=== PATIENT | female | born 1955 | race Caucasian/White ===

== ENCOUNTER → 2016-08-15 | Outpatient (CLI) | payer OTHER ==
[~2016-08-15] MED LIST: ANTRONEX PO; ASCO500T3 PO; CALC500T68 PO; CHOL1TAB42 PO; COQ10 PO; DIGE1CAP10 PO; ESTCR EXT; GLUCTAB7 PO; HYDR-5688 PO; KELP PO; MULT-506 PO; PREGNENOLONE PO; PYRI1TAB40 PO; ZINC25TA PO; [UNRECOGNIZED DRUG - CODE] PO
--- NOTE | 2016-08-15 15:54 | DIAGNOSTIC IMAGING REPORT ---
LEFT FOOT 3 VIEWS HISTORY: ANTERIOR LEFT FOOT PAIN S/P FALL COMPARISON: None. FINDINGS: There is no fracture or dislocation. Soft tissues are unremarkable. No radiopaque foreign bodies. IMPRESSION: No fractures. Electronically signed by: Chris Constantino M.D. 08/15/2016 3:53 PM Dictated Date/Time: 08/15/2016 3:49 PM
== END | disposition home or self-care (01) ==
LOC: C.RDSM 08:52
PROVIDERS: ATTEND Family Medicine
DX: M79.672 Pain in left foot (principal)

== ENCOUNTER → 2016-09-18 | Outpatient (CLI) | payer OTHER | END | disposition home or self-care (01) | LOC: C.PAPS 14:07 | PROVIDERS: ATTEND Obstetrics & Gynecology | DX: Z12.4 Encounter for screening for malignant neoplasm of cervix (principal); N95.2 Postmenopausal atrophic vaginitis ==

== ENCOUNTER → 2016-09-26 | Day surgery (SDC) | payer OTHER ==
[2016-09-13 08:54] VITALS: Ht 167.6 cm; Wt 59.1 kg
[~2016-09-26] VITALS: Ht 167.6 cm; Wt 59.1 kg
[~2016-09-26] MED LIST changes: +ATROPINE SULFATE 0.1 MG/ML 5ML SYR IV PRN; +BUPIVACAINE/EPINEPHRINE 0.25% 1:200,000 30 ML VIAL ONE; +CEFAZOLIN 1000MG/55 ML D5W IV SCH; +DEXAMETHASONE SOD INJ 4 MG/ML VIAL ONE; +EpHEDrine SULFATE INJ 50 MG/ML AMP IV PRN; +EpHEDrine SULFATE INJ 50 MG/ML AMP ONE; +EpINEphrine INJ 1MG/ML AMP 1 MG/ML AMP ONE; +FENTANYL CITRATE INJ 50 MCG/1 ML 2 ML VIAL IV PRN; +FENTANYL CITRATE INJ 50 MCG/1 ML 2 ML VIAL ONE; +HYDROCODONE/ACETAMOPHEN 5/325MG TAB PO PRN; +LACTATED RINGER'S 1000ML 1,000 ML IV SCH; +LIDOCAINE HCL 2% 2 ML VIAL (20MG/ML) ONE; +LIDOCAINE/EPINEPHRINE 1% INJ 50 ML VIAL ONE; +MIDAZOLAM HCL 1 MG/ML 2ML VIAL ONE; +MoRPHine SULFATE 2 MG/ML CARP IV PRN; +MoRPHine SULFATE 4 MG/ML 1 ML CARP\\VIAL IV PRN; +ONDANSETRON INJ 2 MG/ML 2 ML VIAL IV PRN; +ONDANSETRON INJ 2 MG/ML 2 ML VIAL ONE; +PROMETHAZINE HCL INJ 12.5 MG in SODIUM CHLORIDE 0.9% 50ML 50 ML IV PRN; +PROPOFOL IV EMULSION 10 MG/ML 20 ML VIAL IV ONE; +SCOPOLAMINE 1.5 MG TDSY TD ONE; +SODIUM CHLORIDE 0.9% 1000ML 1,000 ML IV SCH; +SODIUM CHLORIDE 0.9% INJ 10 ML VIAL ONE
--- NOTE | 2016-09-26 06:53 | History & Physical Bridge Note ---
H&P Re-Evaluation Bridge Note: I have examined the patient, reviewed the History & Physical and in the interval since the performance of the History & Physical I have noted the following changes of clinical significance: No changes noted
--- NOTE | 2016-09-26 11:28 | [facility] Post Operative Brief Note ---
Immediate Operative Summary Operative Date Sep 26, 2016. Pre-Operative Diagnosis impingement Post-Operative Diagnosis partial cuff tear, Procedure(s) Performed Right Shoulder Arthroscopy, Subacromial Decompression, Acromioplasty, Rotator cuff repair, Biceps Tenodesis, Coracoplasty Surgeon Dr. Wesley Technical Analyst Surgeon(s) Dr. Samy Madden, jocelyn goodwin,ms3 Estimated Blood Loss 25 mL Findings partial cuff tear Specimens None Anesthesia LMA with block Complication(s) None Disposition Recovery Room / PACU
--- NOTE | 2016-09-26 11:44 | Discharge Instructions-SurgCtr ---
Discharge Instructions Date of Service Sep 26, 2016. Visit Reason for Visit: Right Shoulder Impingement, Biceps Tendinitis Discharge Discharge Diagnosis / Problem: Status post right shoulder arthroscopy Discharge Goals Goal(s): Decrease discomfort, Improve function, Increase independence Activity Recommendations Activity Limitations: per Instructions/Follow-up section Anesthesia . Post Anesthesia Instructions: If you have had General Anesthesia or IV Sedation: * Do not drive today. * Resume driving when surgeon permits. * Do not make important decisions or sign legal documents today. * Call surgeon for: 1. Temperature elevations greater than 101 degrees F. 2. Uncontrollable pain. 3. Excessive bleeding. 4. Persistent nausea and vomiting. 5. Medication intolerance (nausea, vomiting or rash). * For nausea and vomiting use only clear liquids such as: tea, soda, bouillon until nausea subsides, then gradually increase diet as tolerated. * If you have any concerns or questions, call your surgeon's office. If physician is unavailable and it is an emergency, call 911 or go to the nearest emergency room. . Instructions / Follow-Up Instructions / Follow-Up The following are instructions to follow after "Shoulder Surgery" including, Acromioplasty, Rotator Cuff Repair and Instability Surgery ACTIVITY RECOMMENDATIONS: * Minimize activity after surgery. * No excessive walking, jogging, sports or laboring. * Return to activity is individualized depending on the patient and type of surgery. * Driving is not permitted until at least your first post operative visit. Please ask your doctor when it is safe to resume driving. * Expect increased discomfort with increased activity. Continue to ice the shoulder as needed. SCHOOL/WORK RECOMMENDATIONS: * You may return to sedentary work or school when you are feeling more comfortable. This is usually 3-7 days after surgery. MEDICATIONS: * You will have a prescription for pain medication and an anti-inflammatory medication after surgery. * Use the pain medication for severe pain and the anti-inflammatory for less severe pain. Once the pain medication has run out, try to use the anti-inflammatory medication. If this is not effective, contact the office for assistance. * The pain medication may cause nausea, constipation and drowsiness. You should see how they affect you before driving or similar activity. * The anti-inflammatory medication may cause stomach upset and bleeding. If this occurs let your doctor know immediately . * Take a stool softener like Colace or a laxative like Senokot to prevent constipation. DIET: * Resume previous diet. SPECIAL CARE: ICE: You have the option of an ice cooler, gel packs or ice bags. * If you have an ice cooler, refer to the instructions for that device. The ice cooler may be used continuously. * If you do not have an ice cooler, you will need to use ice bags or gel packs. Do not apply ice directly to the skin. Use a thin dressing or yoanna shirt between the skin and ice bag. Apply ice for 20-30 minutes and repeat every 2-4 hours. This is especially important for the first 7-10 days after surgery. Once the pain improves, use ice as needed. ELEVATION: * You may be more comfortable sleeping in an upright position. Use the sling to elevate your arm. DRESSING: * Your dressing will be changed at your first therapy appointment approximately 4-5 days after surgery. Band-aids, tape strips or gauze may be applied. You may then change your dressing daily. * Reapply dressing followed by the EBIce cooling pad (if chosen) and then the sling. * Always wash your hands prior to touching the incision area. * Once the stitches are removed, you may leave the wound open to air or cover with gauze. * Expect some bloody drainage for the first few days after surgery. * Leave the tape strips, if present, in place for 5-7 days. * Band-aids and gauze may be changed daily. * There may be a gauze pad in your armpit area. This can be changed daily or replaced by a dry washcloth. SLING/BRACE: * You will need to use a sling or brace after surgery. The length of time the sling is used is dependent upon the type of surgery performed. * Arthroscopic Acromioplasty requires use of the sling for 2-4 weeks for comfort. * Labral procedures and Rotator Cuff Repairs require use of the sling for a longer period of time. Please check with your doctor prior to discontinuing the sling. BATHING: * You may shower or sponge-bathe immediately after surgery. The post operative shoulder dressing is mostly water-tight. You may shower right over this dressing, but be reasonably careful not to get the gauze or incision wet. * Once the dressing has been changed on the fourth or fifth day after surgery, you may shower and get the incision wet. * Wash with regular soap and water. * Do not bathe (submerge the incision), soak, swim or use a hot tub until the incision is completely healed over with normal skin and the doctor has given the OK to proceed. * There is no need to apply any ointments, powders or salves to your incision. * Do not apply alcohol or hydrogen peroxide directly to the incision. * Diluted peroxide (50:50 mixture with sterile saline) may be used to clean dried blood from around the incision area. THERAPY: * You will begin therapy four or five days after surgery. * Organized therapy with the therapist is important for the first 2-4 months after surgery depending on the type of procedure. During that time you will attend therapy 1-3 times per week. * You will also need to do daily exercises for range of motion and strength as instructed. * Patients who have a Capsular Shift Procedure will need to abide by temporary range of motion limitations. * Patients having Rotator Cuff Surgery are not allowed to actively lift their arms until 4-6 weeks after surgery. * Please check with your doctor regarding appropriate motion restrictions. FOLLOW UP VISIT: * If not already scheduled, please call the office at to schedule a follow-up appointment for 10 days after surgery and monthly thereafter. * Follow up with Dr. Wesley on 10/07/16 at 12pm * Follow up with Physical Therapy on 10/01/16 at 10.30am Diet Recommendations Home Diet: no limitations, resume previous diet Procedures Procedures Performed: Right Shoulder Arthroscopy, Subacromial Decompression, Acromioplasty, Rotator cuff repair, Biceps Tenodesis, Coracoplasty Pending Studies Studies pending at discharge: no Medical Emergencies . Who to Call and When: Medical Emergencies: If at any time you feel your situation is an emergency, please call 911 immediately. . Non-Emergent Contact Non-Emergency issues call your: Surgeon . . "Provider Documentation" section prepared by Samy Cook.
--- NOTE | 2016-09-26 11:45 | Medical Student: [facility] ---
Immediate Operative Summary Operative Date Sep 26, 2016. Pre-Operative Diagnosis Right Rotator Cuff Impingement Post-Operative Diagnosis Right rotator cuff impingement; partial tear of rotator cuff Procedure(s) Performed Right shoulder arthroscopy, PASTA repair, release of coracoacromial ligament, coracoplasty, acromioplasty, debridement of subacoracoid bursa, subpectoral biceps tenodesis Surgeon Dr. Wesley Leather Goods Ii Assembler Surgeon(s) Dr. Koki Cook Estimated Blood Loss 25 mL Findings Partial rotator cuff tear, bursitis, tenosynovitis Specimens None Drains None Anesthesia LMA/Block Complication(s) None Disposition Recovery Room / PACU
--- NOTE | 2016-09-26 11:46 | [facility] Post Operative Brief Note ---
Immediate Operative Summary Operative Date Sep 26, 2016. Pre-Operative Diagnosis impingement Post-Operative Diagnosis partial cuff tear, Procedure(s) Performed Right Shoulder Arthroscopy, Subacromial Decompression, Acromioplasty, Rotator cuff repair, Biceps Tenodesis, Coracoplasty Surgeon Dr. Wesley Warp Hand Surgeon(s) Dr. Samy Madden, jocelyn goodwin,ms3 Estimated Blood Loss 25 mL Specimens None Complication(s) None Disposition PCU
--- NOTE | 2016-09-26 12:39 | Anesthesia Progress Nt - [facility] ---
Anesthesia Post Op Note Date & Time Sep 26, 2016 at 12:38 Vital Signs Pain Intensity: 0 Vital Signs Past 12 Hours Date Time Temp Pulse Resp B/P Pulse Ox O2 Delivery O2 Flow Rate FiO2 09/26/16 12:30 91 7 94 09/26/16 12:30 37.2 92 7 09/26/16 12:25 97 3 121/75 95 09/26/16 12:25 96 3 09/26/16 12:21 126/53 09/26/16 12:20 101 18 95 09/26/16 12:20 100 18 09/26/16 12:15 94 15 09/26/16 12:15 95 15 121/69 95 09/26/16 12:10 92 9 130/70 94 09/26/16 12:10 93 9 09/26/16 12:05 94 17 121/69 95 09/26/16 12:05 93 17 09/26/16 12:01 120/78 09/26/16 12:00 94 14 98 09/26/16 12:00 94 14 09/26/16 11:55 94 16 09/26/16 11:55 94 16 124/73 98 09/26/16 11:51 114/62 09/26/16 11:50 94 15 09/26/16 11:50 93 15 98 09/26/16 11:45 85 10 09/26/16 11:45 86 10 117/64 98 09/26/16 11:42 36.4 87 16 132/70 98 Mask 6 09/26/16 11:40 90 10 122/67 98 09/26/16 11:40 89 10 09/26/16 11:39 137/70 09/26/16 08:00 0 09/26/16 08:00 0 09/26/16 07:59 0 09/26/16 07:59 0 09/26/16 07:55 107/56 09/26/16 07:54 82 11 99 09/26/16 07:54 83 11 09/26/16 07:53 70 13 09/26/16 07:53 70 13 98 09/26/16 07:50 114/67 09/26/16 07:48 70 14 100 09/26/16 07:48 70 14 09/26/16 07:45 137/80 09/26/16 07:43 82 10 100 09/26/16 07:43 82 10 09/26/16 07:40 124/74 09/26/16 07:38 77 9 98 09/26/16 07:38 76 9 09/26/16 07:35 122/74 09/26/16 07:33 78 99 09/26/16 07:33 80 09/26/16 07:32 131/80 09/26/16 07:03 77 09/26/16 07:03 77 100 09/26/16 06:58 78 09/26/16 06:58 82 100 09/26/16 06:34 36.6 87 16 120/71 99 Room Air Notes Mental Status: alert / awake / arousable, participated in evaluation Pt Amnestic to Procedure: Yes Nausea / Vomiting: adequately controlled Pain: adequately controlled Airway Patency, RR, SpO2: stable & adequate BP & HR: stable & adequate Hydration State: stable & adequate Anesthetic Complications: no major complications apparent Block working well in pacu
[2016-09-26 12:40] VITALS: TEMP 36.9
[2016-09-26 13:18] VITALS: BP 120/65; PULSE 88; O2SAT 99
--- NOTE | 2016-09-26 13:59 | OPERATIVE REPORT ---
DATE OF OPERATION: 09/26/2016 PREOPERATIVE DIAGNOSIS: Right shoulder impingement syndrome. POSTOPERATIVE DIAGNOSIS: Partial thickness supraspinatus tear. PROCEDURES: Right shoulder arthroscopy, debridement, percutaneous arthroscopic repair of partial thickness supraspinatus tear, coracoplasty, acromioplasty, biceps tenodesis. SURGEON: Dr. Wesley. PRINCIPAL ASSOCIATE: Samy East MD, fellow. No resident or PA available. ANESTHESIA: Laryngeal mask with interscalene block. SECOND PRINCIPAL ASSOCIATE: Sara Palomino [facility] 3rd year medical student. BRIEF HISTORY: The patient is a 60-year-old female with a long history of right shoulder pain. Her MRI looks fairly normal. Her acromial morphology is relatively flat. She does have evidence of bursitis. She has responded temporarily but favorably to biceps injections and subacromial injections. After failing nonoperative management, she is taken to surgery. PROCEDURE IN DETAIL: Informed consent was obtained. The patient was identified as Sis Roman. She identified the operative site as the right shoulder. I marked it with my initials. A preop surgical timeout was performed. A preop dose of IV antibiotics was given. She was taken to the operating room, positioned supine on the operating room table. A laryngeal mask anesthetic was administered along with an interscalene block. She was positioned beach chair with the neck held in neutral alignment. The [place] body positioner and Trimano arm holders were utilized. The examination under anesthesia revealed full unrestricted range of motion, grade 1 posterior laxity, grade 1 sulcus and grade 2 anterior translation which was equal bilaterally. The neck was held in neutral alignment, the mastoid processes were padded. The torso was secured to the table. The knees were flexed and heels were padded. Foot pumps used intraoperatively for DVT prophylaxis, early mobility postoperatively. An injection with 1% lidocaine containing epinephrine was done into the portal sites and subacromial space preoperatively. The right upper extremity was prepped and draped in the usual sterile fashion. Posterior soft spot viewing portal was established, followed by a mid glenoid anterior working portal using the outside-in technique. Diagnostic arthroscopy was performed. The rotator interval, anterior and posterior capsule, subscapularis were normal. The subscap had a normal attachment. The biceps tendon looked normal and was also pulled into the joint. Because of the patient's pain pattern and response to prior injections, I elected to proceed with a biceps tenotomy versus tenodesis and resected the biceps. The crescent cable construct of the rotator cuff was noted. Debridement of the leading edge of the supraspinatus revealed after removal of the synovium, that there was partial thickness damage which was of a depth of about 5-6 mm for about the anterior 5-7 mm, more posterior it was 3-4 mm. This was about 1 cm in length. The articular surfaces were normal. There was minor fraying of the labrum which was debrided. No loose bodies were noted. The scope was placed anteriorly. The posterior capsular structures and labrum were visualized. The rotator interval was debrided and because of her anterior pain, a 2-3 mm coracoplasty was performed. The scope was placed in the subacromial space. Prior to that, a tagging suture was passed through the partial thickness tear of the rotator cuff. On the bursal surface, there was noted to be a moderate amount of bursitis which was thoroughly debrided and the rotator cuff on the bursal surface, although slightly frayed, remained intact without evidence of any bursal-sided tearing. I was able to place the scope anteriorly and visualize and measure the rotator cuff tear, now that the biceps tendon and rotator interval tissue were debrided. This indicated that the rotator cuff tear at the anterior aspect was about 50% of the thickness of the tendon. I therefore thought that a repair would be helpful. The scope was placed back into the joint. The position of the anchor was established based on the percutaneous spinal needle. This was followed by the application of a percutaneous awl, followed by a 4.5 mm PEEK Corkscrew anchor. This was followed by shuttling one of each color suture posteromedially and anteromedially for horizontal mattress stitch type repair, reapproximating the partial thickness tear completely back down to the bone. The scope was then placed in the subacromial space, the sutures were retrieved, managed and then tied using a modified Apolinar knot backed up with reverse half hitches on alternating posts. The scope was placed back into the joint and the repair was secure and the footprint was covered. The undersurface of the acromion was denuded. There was a slight bit of anterior and lateral prominence and so 2-3 mm of anterolateral bone was debrided. There was evidence of chronic impingement on the coracoacromial ligament and acromion. The undersurface was debrided of soft tissue, the coracoacromial ligament was released. The scope and instruments were removed from the shoulder. Deltopectoral interval distal extent was identified and a 5 cm incision was made over the upper biceps, just at the inferior margin of the pectoralis. Blunt dissection through the subcutaneous tissues, the inferior border of the pectoralis tendon was identified and Hohmann retractors were inserted. The biceps tendon was identified and delivered into the joint. The bicipital groove lower portion was excoriated with a rongeur and curette and then tenodesed with a single 2.9 mm all-suture JuggerKnot type anchor with the musculotendinous junction at the inferior border of the pectoralis tendon. Meticulous hemostasis was achieved. The portals were closed with 4-0 nylon. The anterior incision was closed with 4-0 Vicryl and a running 3-0 Prolene subcuticular stitch. This was followed by the application of a soft sterile dressing and ABD in the armpit. The armpit was excluded from the surgical field with Ioban. The patient awakened from anesthesia without difficulty and taken to recovery in stable condition. There were no specimens or complications. Counts were correct at the end of case. Blood loss was 25 mL. At the conclusion of the operation, I spoke to patient's and informed him of my findings. Postoperative instructions were given. She will have passive range of motion of the shoulder consistent with rotator cuff repair rehab protocol and also will have passive movement of the elbow for the next 4-6 weeks. The biceps tendon appeared fairly normal. There was some tenosynovitis. I attest to the content of the Intraoperative Record and any orders documented therein. Any exceptio ns are noted below.
== END | disposition home or self-care (01) ==
LOC: X.SURG 06:17
PROVIDERS: ATTEND Physical Medicine & Rehabilitation Sports Medicine
DX: M75.41 Impingement syndrome of right shoulder (principal); M75.51 Bursitis of right shoulder; Z80.1 Family history of malignant neoplasm of trachea, bronchus and lung

== ENCOUNTER → 2016-10-07 | Outpatient (CLI) | payer OTHER ==
[~2016-10-07] MED LIST changes: -ATROPINE SULFATE 0.1 MG/ML 5ML SYR IV PRN; -BUPIVACAINE/EPINEPHRINE 0.25% 1:200,000 30 ML VIAL ONE; -CEFAZOLIN 1000MG/55 ML D5W IV SCH; -DEXAMETHASONE SOD INJ 4 MG/ML VIAL ONE; -EpHEDrine SULFATE INJ 50 MG/ML AMP IV PRN; -EpHEDrine SULFATE INJ 50 MG/ML AMP ONE; -EpINEphrine INJ 1MG/ML AMP 1 MG/ML AMP ONE; -FENTANYL CITRATE INJ 50 MCG/1 ML 2 ML VIAL IV PRN; -FENTANYL CITRATE INJ 50 MCG/1 ML 2 ML VIAL ONE; -HYDROCODONE/ACETAMOPHEN 5/325MG TAB PO PRN; -LACTATED RINGER'S 1000ML 1,000 ML IV SCH; -LIDOCAINE HCL 2% 2 ML VIAL (20MG/ML) ONE; -LIDOCAINE/EPINEPHRINE 1% INJ 50 ML VIAL ONE; -MIDAZOLAM HCL 1 MG/ML 2ML VIAL ONE; -MoRPHine SULFATE 2 MG/ML CARP IV PRN; -MoRPHine SULFATE 4 MG/ML 1 ML CARP\\VIAL IV PRN; -ONDANSETRON INJ 2 MG/ML 2 ML VIAL IV PRN; -ONDANSETRON INJ 2 MG/ML 2 ML VIAL ONE; -PROMETHAZINE HCL INJ 12.5 MG in SODIUM CHLORIDE 0.9% 50ML 50 ML IV PRN; -PROPOFOL IV EMULSION 10 MG/ML 20 ML VIAL IV ONE; -SCOPOLAMINE 1.5 MG TDSY TD ONE; -SODIUM CHLORIDE 0.9% 1000ML 1,000 ML IV SCH; -SODIUM CHLORIDE 0.9% INJ 10 ML VIAL ONE
== END | disposition home or self-care (01) ==
LOC: C.RDSM 07:50
PROVIDERS: ATTEND Physical Medicine & Rehabilitation Sports Medicine
DX: M75.41 Impingement syndrome of right shoulder (principal)

== ENCOUNTER → 2016-10-17 | Outpatient (CLI) | payer OTHER ==
--- NOTE | 2016-10-17 11:36 | DIAGNOSTIC IMAGING REPORT ---
LEFT FOOT MIN 3 VIEWS CLINICAL HISTORY: LEFT FOOT SPRAIN trauma. Pain. COMPARISON: 08/15/2016 DISCUSSION: The bones and joint spaces appear intact. There is no evidence of fracture, dislocation or bony disease. There is no evidence for soft tissue swelling. IMPRESSION: Negative study. Electronically signed by: Lonnie Paige M.D. 10/17/2016 11:34 AM Dictated Date/Time: 10/17/2016 11:32 AM
== END | disposition home or self-care (01) ==
LOC: C.RDSM 11:25
PROVIDERS: ATTEND Family Medicine
DX: S93.602A Unspecified sprain of left foot, initial encounter (principal); X58.XXXA Exposure to other specified factors, initial encounter

== ENCOUNTER → 2016-12-04 | Outpatient (CLI) | payer OTHER | LOC: C.RDSM 14:40 | PROVIDERS: ATTEND Physical Medicine & Rehabilitation Sports Medicine | DX: M75.101 Unspecified rotator cuff tear or rupture of right shoulder, not specified as traumatic (principal) ==

== ENCOUNTER → 2017-01-29 | Outpatient (CLI) | payer OTHER ==
--- NOTE | 2017-01-29 15:24 | DIAGNOSTIC IMAGING REPORT ---
LEFT KNEE 4 OR MORE HISTORY:61 yearsFemaleLEFT KNEE PAIN COMPARISON: None available. TECHNIQUE: Frontal, tunnel, lateral and sunrise views of the left knee. FINDINGS: Minimal tricompartmental osteoarthritis is noted. There is no acute fracture or dislocation. No intra-articular loose body is identified. There is a small joint effusion. IMPRESSION: 1. Minimal tricompartmental osteoarthritis without acute fracture or dislocation. 2. Small joint effusion. The above report was generated using voice recognition software. It may contain grammatical, syntax or spelling errors. Electronically signed by: Eulogio Marcano M.D. 01/29/2017 3:23 PM Dictated Date/Time: 01/29/2017 3:21 PM
== END | disposition home or self-care (01) ==
LOC: C.RDSM 15:05
PROVIDERS: ATTEND Physician Assistant
DX: M25.562 Pain in left knee (principal); M17.12 Unilateral primary osteoarthritis, left knee

== ENCOUNTER → 2017-09-29 | Outpatient (CLI) | payer OTHER ==
[~2017-09-29] MED LIST changes: -HYDR-5688 PO
== END | disposition home or self-care (01) ==
LOC: C.PAPS 08:40
PROVIDERS: ATTEND Obstetrics & Gynecology
DX: Z12.4 Encounter for screening for malignant neoplasm of cervix (principal); N95.2 Postmenopausal atrophic vaginitis